=== PATIENT | male | born 2000 ===

== ENCOUNTER → 2022-06-23 14:30 | Outpatient (BNVA) | payer OTHER, SELFPAY | PROVIDERS: PCP Nurse Practitioner Family; Visit Provider Anesthesiology | DX: G90.523 Complex regional pain syndrome I of lower limb, bilateral (principal) | CPT/HCPCS: 99202 ==

== ENCOUNTER 2023-01-13 12:30 | Outpatient (REF) | payer OTHER, SELFPAY ==
--- NOTE | ~2023-01-13 | XR_ITS ---
EXAMINATION: XR KNEE, BILATERAL CLINICAL INFORMATION: Pain. COMPARISON: None TECHNIQUE: 2 views each knee. FINDINGS: RIGHT KNEE: The patellofemoral compartment joint space is maintained normal. There are no loose bodies, bony erosive changes or joint effusion. There is diffuse osteopenia distal femur and proximal tibia. LEFT KNEE: The patellofemoral compartment joint space is maintained normal. No bony erosive changes. No loose bodies. No joint effusion. XR/XR knee LT 2V IMPRESSION: Mild osteopenia of right distal femur and proximal tibia. No acute fracture or dislocation seen. No joint effusion seen. Unremarkable left knee exam.
--- NOTE | ~2023-01-13 | XR_ITS ---
EXAMINATION: XR KNEE, BILATERAL CLINICAL INFORMATION: Pain. COMPARISON: None TECHNIQUE: 2 views each knee. FINDINGS: RIGHT KNEE: The patellofemoral compartment joint space is maintained normal. There are no loose bodies, bony erosive changes or joint effusion. There is diffuse osteopenia distal femur and proximal tibia. LEFT KNEE: The patellofemoral compartment joint space is maintained normal. No bony erosive changes. No loose bodies. No joint effusion. XR/XR knee RT 2V IMPRESSION: Mild osteopenia of right distal femur and proximal tibia. No acute fracture or dislocation seen. No joint effusion seen. Unremarkable left knee exam.
== END 2023-01-13 12:31 | disposition home or self-care (01) ==
LOC: HO.HOSX 12:30
PROVIDERS: Visit Provider Physician Assistant
DX: M24.561 Contracture, right knee (principal); M24.562 Contracture, left knee
CPT/HCPCS: 73560; 99202

== ENCOUNTER 2023-11-04 09:18 | Outpatient (AMB) | payer OTHER, SELFPAY ==
[2023-11-04 09:25] VITALS: BP 120/76; PULSE 96; O2SAT 97
--- NOTE | 2023-11-04 09:25 | A.OFFPC_ITS ---
Vital Signs 11/04/23 09:25 Height 5 ft 6 in BMI Reason not done Patient refused/unable BP 120/76 Blood Pressure Location Lt brachial Position Sitting Pulse 96 Pulse Source Pulse Oximeter Pulse Oximetry (%) 97 Oxygen Delivery Method Room Air Intake Visit Reasons: RLE pain and swelling Secondary Spanish Teacher Required: No Preschool Teacher'S Assistant: Not Required per policy Accompanied by: Self / Same As Patient Allergies No Known Allergies Allergy (Verified 11/04/23 09:26) Tobacco use date assessed: 04/07/23 Dental Screening Dental Screen Date: 11/04/23 Did you have a dental visit in the last 12 months?: No Did you have a dental problem in the last 6 months where you did not have access to dental care?: No Was dental information given to patient?: Patient has dentist HPI RLE pain and swelling HPI Details 23-year-old male 1st time being seen [facility] April 2022 for cardiac arrest history of opioid use went in to [place] fentanyl overdose 8 minutes of ACLS intubated found to have left-sided pneumonia and acute hypoxic respiratory failure and significant shock respiratory metabolic acidosis acute kidney injury secondary to rhabdo myelitis hyperkalemia hyperglycemia and shock liver had oliguria requiring hemodialysis placed on BiPAP had fluid overload sciatic compression secondary to myositis right leg weakness right gluteal compartment syndrome sciatic nerve compression MRI lumbar spine ruled out S Ca and epidural hematoma. Patient has been seeing the nurse practitioner last seen in March 2023 continues to have right leg pain bilateral knee contractures bilateral leg pain patient was seen by orthopedics in [place] [facility] here. concern on leg circulation and concern on DVT [facility] Medical History (Updated 11/04/23 @ 10:20 by Rajan Powers MD) Routine screening for STI (sexually transmitted infection) Screening for diabetes mellitus Screening for hyperlipidemia Screening for hypothyroidism Encounter to establish care HTN, goal to be determined Surgical History No pertinent past surgical history Family History Mother No problems noted. Father No problems noted. Social History Housing: Apartment Patient Tobacco Use Status: Never used Tobacco e-Cigarette/Vaping Use: Former Use Second Hand Smoke Exposure: No Substance Use Type: Marijuana and Opiates service: No Current occupational status: unemployed Cognitive needs: Yes (wheelchair) Hearing needs: No Vision needs: Yes Questionnaire Thrive Questionnaire Date Thrive assessed: 12/01/22 YUVAL-7 AMB Questionnaire YUVAL-7 Date YUVAL - 7 assessed: 03/23/23 Source: Developed by Drs. Jerald Marcum, Jonna White, Miguel Angel Salinas and colleagues, with an educational kyler from [employer]. Physical exam (Primary Care) Vital Signs: Last Vital Signs Pulse 96 11/04/23 09:25 BP 120/76 11/04/23 09:25 Pulse Ox 97 11/04/23 09:25 Oxygen Delivery Method Room Air 11/04/23 09:25 Tobacco/Smoking Status: Tobacco use Status Tobacco use date assessed 04/07/23 11/04/23 09:26 Patient Tobacco Use Status Never used Tobacco 11/04/23 09:26 e-Cigarette/Vaping Use Former Use 11/04/23 09:26 Thrive Assessment: Date of Thrive Assessment Date Thrive assessed 12/01/22 11/04/23 09:26 Const General: alert; No acute distress Eyes Conjunctivae: conjunctivae normal Resp Auscultation: clear to auscultation bilaterally Cardio Rate: regular rate Rhythm: regular rhythm GI Inspection: Yes normal to inspection Extrem Other: no swelling LE and pulses R foot good, canno dorsiflex, cannot straighten R leg, can lift thigh up, L leg normal atrophied R leg Assessment and Plan Assessment & Plan (1) Cardiac arrest due to trauma: Comment: 03/21/22, PEA arrest secondary to fentanyl overdose 03/21/2022 requiring dialysis right lower extremity weaknessworkup for MRI showed extensive myositis and myonecrosis throughout the right hemipelvis right thigh diagnosis of rhabdomyolysis will require nerve conduction test outpatient noted echocardiogram 40-45% follow-up echo required advised cognitive behavior therapy Code(s): I46.8 - Cardiac arrest due to other underlying condition (2) Hypertension: Code(s): I10 - Essential (primary) hypertension (3) Bilateral knee contractures: Code(s): M24.561 - Contracture, right knee; M24.562 - Contracture, left knee (4) Major depression: Code(s): F32.9 - Major depressive disorder, single episode, unspecified Orders: Orders Complete Blood Count Auto Diff Today I46.8 - Cardiac arrest due to other underlying condition Comprehensive Met. Panel Today I46.8 - Cardiac arrest due to other underlying condition Thyroid Stimulating Hormone Today I46.8 - Cardiac arrest due to other underlying condition Vitamin B12 and Folate Today I46.8 - Cardiac arrest due to other underlying condition CA echo transthoracic complete Today I46.8 - Cardiac arrest due to other underlying condition Lipid Panel Today E78.00 - Pure hypercholesterolemia, unspecified, I46.8 - Cardiac arrest due to other underlying condition Free T4 (Free Thyroxine) Today I46.8 - Cardiac arrest due to other underlying condition Medications: Changed From duloxetine 30 mg PO QAM 30 caps 2RF F32.9 - Major depressive disorder, single episode, unspecified To duloxetine 60 mg PO QAM 30 caps 2RF F32.9 - Major depressive disorder, single episode, unspecified Discontinued carvedilol Discontinued Reason: Patient Refused 6.25 mg PO BID 30 tabs 2RF I10 - Essential (primary) hypertension, I50.20 - Unspecified systolic (congestive) heart failure clonidine HCl Discontinued Reason: Doctor's Order 0.2 mg (2 x 0.1 mg) PO BID 60 tabs 2RF F41.9 - Anxiety disorder, unspecified melatonin Discontinued Reason: Patient Completed Course 5 mg PO BEDTIME 30 tabs 0RF tizanidine Discontinued Reason: Patient Completed Course 2 mg PO Q8H PRN 30 tabs 0RF muscle spasticity G90.523 - Complex regional pain syndrome I of lower limb, bilateral, M25.561 - Pain in right knee, M25.562 - Pain in left knee, M79.604 - Pain in right leg, M79.605 - Pain in left leg gabapentin Discontinued Reason: Patient Completed Course 200 mg (2 x 100 mg) PO TID 84 caps 0RF M79.604 - Pain in right leg, M79.605 - Pain in left leg meloxicam Discontinued Reason: Patient Completed Course 7.5 mg PO DAILY 14 tabs 0RF M79.604 - Pain in right leg, M79.605 - Pain in left leg Coding Level of Care Code Est Pt Level 4 (18030) Diagnoses Cardiac arrest due to trauma I46.8 Hypertension I10 Bilateral knee contractures M24.561; M24.562 Major depression F32.9
== END 2023-11-04 10:45 | disposition home or self-care (01) ==
PROVIDERS: PCP Nurse Practitioner Family; Visit Provider Internal Medicine
DX: I46.8 Cardiac arrest due to other underlying condition (principal); I10 Essential (primary) hypertension; M24.561 Contracture, right knee; M24.562 Contracture, left knee; F32.9 Major depressive disorder, single episode, unspecified
CPT/HCPCS: 99214

== ENCOUNTER 2024-09-06 10:25 | Outpatient (AMB) | payer OTHER, SELFPAY ==
[2024-09-06 10:29] VITALS: BP 100/66; PULSE 101; O2SAT 96
--- NOTE | 2024-09-06 10:29 | MHC.PC.OV ---
Vital Signs 09/06/24 10:29 Height 5 ft 6 in BMI Reason not done Patient refused/unable BP 100/66 Blood Pressure Location Rt brachial Position Sitting Pulse 101 H Pulse Source Pulse Oximeter Pulse Oximetry (%) 96 Oxygen Delivery Method Room Air Intake Visit Reasons: annual exam Home Day Care Provider Required: No Accompanied by: Self / Same As Patient Allergies No Known Allergies Allergy (Verified 09/06/24 10:51) Medication List - Last Reconciled 09/06/24 by Rayne Huffman PA-C acetaminophen (Tylenol Extra Strength) 1,000 mg (2 x 500 mg) PO Q6H PRN crutches As directed duloxetine 60 mg PO QAM Tobacco use date assessed: 09/06/24 Dental Screening Dental Screen Date: 09/06/24 Did you have a dental visit in the last 12 months?: Yes Did you have a dental problem in the last 6 months where you did not have access to dental care?: No Was dental information given to patient?: Patient has dentist HPI annual exam HPI Details 24-year-old male with past medical history of cardiac arrest believed to be secondary to intentional overdose. Was previously being seen by [place] [facility] for bilateral leg contracture. In review of the notes, patient was scheduled to be seen by Cardiology earlier this year and missed the appointment. Patient was seen by [place] [facility] 04/20/2023 advise surgical plan for manipulation under anesthesia for right knee contracture. Underwent manipulation under anesthesia twice the second time being this year, with very mild improvement and has not gone back to see them. Patient has not seen orthopedics since the 2nd manipulation earlier this year. He continues to have right leg pain and deconditioning and has new onset right foot pain. Due to nerve damage patient is unsure if he had injury to the foot but does not recall any instances where he may have injured the foot. Previously seen by Cardiology and [place] and has not followed up. His sensation in bilateral feet and legs has been improving however he does still continue to have pain in the right leg. He has used gabapentin along with some muscle relaxers for the pain with little improvement. He is wheelchair dependent and requires his FISHERY BIOLOGIST for many of his ADLs. [facility] Medical History Routine screening for STI (sexually transmitted infection) Screening for diabetes mellitus Screening for hyperlipidemia Screening for hypothyroidism Encounter to establish care HTN, goal to be determined Surgical History No pertinent past surgical history Family History Mother No problems noted. Father No problems noted. Social History Housing: Apartment Patient Tobacco Use Status: Never used Tobacco e-Cigarette/Vaping Use: Former Use Second Hand Smoke Exposure: No Substance Use Type: Marijuana and Opiates service: No Current occupational status: unemployed Cognitive needs: Yes (wheelchair) Hearing needs: No Vision needs: Yes Questionnaire PHQ-9 Over the last 2 weeks, how often have you been bothered by any of the following problems? 1. Little interest or pleasure in doing things: nearly every day 2. Feeling down, depressed, or hopeless: more than half the days 3. Trouble falling or staying asleep, or sleeping too much: nearly every day 4. Feeling tired or having little energy: nearly every day 5. Poor appetite or overeating: nearly every day 6. Feeling bad about yourself - or that you are a failure or have let yourself or your family down: more than half the days 7. Trouble concentrating on things, such as reading the newspaper or watching television: several days 8. Moving or speaking so slowly that other people could have noticed. Or the opposite - being so fidgety or restless that you have been moving around a lot more than usual: more than half the days 9. Thoughts that you would be better off or of hurting yourself in some way: not at all Total score: 19 Depression Screening Interpretation: Positive Depression Screening Follow-up: Existing condition and Declines treatment Depression Screening Done: Yes [id number] - PHQ-9 Billing: Yes Source: Developed by Drs. Jerald Marcum, Jonna White, Miguel Angel Salinas and colleagues, with an educational kyler from [employer]. Thrive Questionnaire Date Thrive assessed: 09/06/24 I am a: Patient What is your living situation today?: I have a place to live, but I am worried about losing it in the future Within the past 12 months, did the food you bought not last and you didn't have the money to get more?: Sometimes True Within the past 12 months, did you worry whether your food would run out before you got money to buy more?: Sometimes True Do you have trouble paying for medicines?: I choose not to answer this question Do you have trouble getting transportation to medical appointments?: No Do you have trouble paying your heating and electricity bill?: I choose not to answer this question Do you have trouble taking care of your child, family member or friend?: I choose not to answer this question Do you have trouble with day-to-day activities such as bathing, preparing meals, shopping, managing finances, etc.?: Yes Are you currently unemployed and looking for a job?: I choose not to answer this question Are you interested in more education?: Yes Please select the resources that you would like help with: Housing/Alf, Food, Transportation, Utilities, Care for elder or disabled, Daily support, Job search/training and Education Currently or been in a relationship where the following occur: No concerns reported THRIVE Score: 3 AUDIT C Alcohol Use Questionnaire (AUDIT-C) 1. How often do you have a drink containing alcohol?: Never Total Score: 0 YUVAL-7 AMB Questionnaire YUVAL-7 Date YUVAL - 7 assessed: 03/23/23 Feeling nervous, anxious, or on edge: 1 = Several days Not being able to stop or control worryin = Several days Worrying too much about different things: 3 = Nearly every day Trouble relaxin = Nearly every day Being so restless that it is hard to sit still: 3 = Nearly every day Becoming easily annoyed or irritable: 1 = Several days Feeling afraid as if something awful might happen: 3 = Nearly every day Total YUVAL-7 score (0-4 normal; 5-9 mild; 10-14 moderate; 15-21 severe): 15 Source: Developed by Drs. Jerald Marcum, Jonna White, Miguel Angel Salinas and colleagues, with an educational kyler from [employer]. Review of Systems Const Denies body aches, Denies fatigue, Denies fever(s), Denies frequent falls, Reports headache(s) and Reports weakness Eyes Reports no additional complaints and Denies change in vision ENT Denies dysphagia, Denies dizziness, Denies facial pain, Reports headache(s), Denies nasal congestion and Denies odynophagia Card Denies chest pain, Denies syncope, Denies irregular heart rhythm, Denies leg edema, Denies lightheadedness and Denies dyspnea Resp Denies cough and Denies dyspnea GI Denies abdominal pain, Denies constipation, Denies dysphagia, Denies dyspepsia, Denies diarrhea, Denies nausea, Denies odynophagia and Denies vomiting Denies dysuria, Denies urinary frequency, Denies urinary hesitancy and Denies urinary urgency Musc Details: Right foot pain Reports as per HPI, Reports abnormal gait, Denies myalgias, Reports atrophy and Reports limited range of motion Skin/Breast Reports system reviewed and no additional complaints, except as documented Neuro Reports abnormal gait, Denies dizziness, Denies syncope, Denies frequent falls, Reports headache(s) and Reports weakness Psych Reports no additional complaints Endo Denies fatigue Physical exam (Primary Care) Vital Signs: Last Vital Signs Pulse 101 H 09/06/24 10:29 BP 100/66 09/06/24 10:29 Pulse Ox 96 09/06/24 10:29 Oxygen Delivery Method Room Air 09/06/24 10:29 Tobacco/Smoking Status: Tobacco use Status Tobacco use date assessed 09/06/24 09/06/24 10:32 Patient Tobacco Use Status Never used Tobacco 09/06/24 10:32 e-Cigarette/Vaping Use Former Use 09/06/24 10:32 PHQ-9: PHQ-9 Score PHQ-9: Total score 19 09/06/24 10:55 Depression Screening Interpretation: Positive Depression Screening Follow-up: Existing condition and Declines treatment Thrive Assessment: Date of Thrive Assessment Date Thrive assessed 09/06/24 09/06/24 10:32 Currently or been in a relationship where the following occur: No concerns reported Const General: cooperative, healthy appearing, comfortable and no acute distress Orientation/consciousness: patient oriented x3 HENMT Head: Yes normocephalic Ears: hearing grossly normal bilaterally, external ears normal, TM's normal bilaterally and EAC's normal General nose exam: Normal external nose present Face and sinus: Yes normal facial exam and Yes sinuses nontender Mouth: Normal oral and palatal mucosa present and tongue normal Throat: Yes posterior oropharynx normal Eyes General: appearance normal, both eyes and all related structures Conjunctivae: conjunctivae normal Pupils: Equal, round and reactive pupils present EOM: EOMs intact bilaterally and No Nystagmus present Neck Neck: Yes normal visual inspection, Yes full ROM and Yes no lymphadenopathy Chest Chest palpation & inspection: normal inspection of the chest Resp Effort & Inspection: normal respiratory effort Auscultation: clear to auscultation bilaterally, no crackles, no rales, no rhonchi, no wheezes and breath sounds present Cardio Rate: regular rate Rhythm: regular rhythm Peripheral pulses: radial pulses present and dorsalis pedis present GI Inspection: Yes normal to inspection and No Abdominal wall edema Palpation (GI): Soft to palpation, not firm and nontender Auscultation: normal bowel sounds Rectal Exam - Male: Yes deferred General: Yes no CVA tenderness Back/Spine/Pelvis Back: no CVA tenderness Skin General skin exam: no rashes or lesions noted Neuro General: patient oriented x3 Cranial nerves: Yes Equal, round and reactive pupils present, Yes Midline tongue present, Yes Ability to bilaterally elevate shoulders present and No Nystagmus present Gait exam (Neuro): Assisted gait required Gait assisted method: wheelchair bound Extrem Other: Pulses intact in bilateral lower extremities. Tenderness to palpation and mild swelling of medial aspect of the foot around the great toe without erythema or overlying skin changes. Right lower extremity contracted with decreased muscle mass of calf and thigh General: Yes normal to inspection, Yes full ROM, No no pedal edema and No edema Psych Speech and movement: Normal speech and movement present Affect: normal affect Insight: Good insight present (Psych) Judgement: Good judgement present (Psych) Coding Level of Care Code Est Pt Level 3 (82927) Est Pt Prev Care 18-39y(52222) Diagnoses Major depression F32.9 Bilateral knee contractures M24.561; M24.562 Complex regional pain syndrome i of lower limb, bilateral G90.523 Cardiac arrest due to trauma I46.8 Hypertension I10 Right foot pain M79.671 Assessment & Plan Assessment & Plan (1) Major depression: Code(s): F32.9 - Major depressive disorder, single episode, unspecified Category: Medical Plan: Patient has a history of being on several different medications for this concern. He is declines need for counselor at this time. Is willing to trial mirtazapine 7.5 mg for depression, sleep as well as appetite stimulant. (2) Bilateral knee contractures: Code(s): M24.561 - Contracture, right knee; M24.562 - Contracture, left knee Category: Medical Plan: Advised patient to continue to follow up with Orthopedics. Was previously working with physical therapy but was dismissed. (3) Complex regional pain syndrome i of lower limb, bilateral: Code(s): G90.523 - Complex regional pain syndrome I of lower limb, bilateral Category: Medical Plan: Patient has been on several medications to treat the nerve and muscle pain of the right lower extremity. We will trial muscle relaxer to help with the pain and referral placed for pain management clinic for further evaluation. (4) Cardiac arrest due to trauma: Comment: 03/21/22, PEA arrest secondary to fentanyl overdose 03/21/2022 requiring dialysis right lower extremity weaknessworkup for MRI showed extensive myositis and myonecrosis throughout the right hemipelvis right thigh diagnosis of rhabdomyolysis will require nerve conduction test outpatient noted echocardiogram 40-45% follow-up echo required advised cognitive behavior therapy Code(s): I46.8 - Cardiac arrest due to other underlying condition Category: Medical Plan: Advised patient to follow up with site[facility] developer as they have not been seen in over a year. Ordered for updated blood work. (5) Hypertension: Code(s): I10 - Essential (primary) hypertension Category: Medical Plan: Blood pressure normal on exam today.Avoid salt intake and encourage healthy diet and regular exercise as tolerated. (6) Right foot pain: Code(s): M79.671 - Pain in right foot Category: Medical Plan: Patient has new onset right foot pain and swelling for the last month unsure if he did anything to injure the foot as he has nerve damage in this extremity. Ordered for right foot x-ray. Patient also requesting ankle brace as his foot will pronate often causing pain. Plan This note was constructed using voice recognition software. While every effort has been made to ensure accuracy and associate store leader, still areas may have been included sometimes these areas may affect the content or meeting of the given symptoms. Total time spent caring for the patient today was 30 minutes. This includes time spent before the visit reviewing the chart, time spent during the visit, and time spent after the visit and documentation. Orders: Orders XR foot RT 2V Today M79.671 - Pain in right foot Complete Blood Count Auto Diff Today I46.8 - Cardiac arrest due to other underlying condition Vitamin B12 and Folate Today I46.8 - Cardiac arrest due to other underlying condition Thyroid Stimulating Hormone Today I46.8 - Cardiac arrest due to other underlying condition Comprehensive Met. Panel Today I46.8 - Cardiac arrest due to other underlying condition Free T4 (Free Thyroxine) Today I46.8 - Cardiac arrest due to other underlying condition Lipid Panel Today E78.00 - Pure hypercholesterolemia, unspecified, I46.8 - Cardiac arrest due to other underlying condition Referrals Pain Management Referral G90.523 - Complex regional pain syndrome I of lower limb, bilateral Medications: New naproxen 500 mg PO BID PRN 30 tabs 0RF pain naproxen 500 mg PO BID PRN 30 tabs 0RF pain mirtazapine 7.5 mg PO BEDTIME 30 tabs 2RF methocarbamol 500 mg PO BID PRN 14 tabs 0RF pain mirtazapine 7.5 mg PO BEDTIME 30 tabs 2RF methocarbamol 500 mg PO BID PRN 14 tabs 0RF pain leg brace (Ankle Brace) As directed 1 ea 0RF M79.671 - Pain in right foot, R29.898 - Other symptoms and signs involving the musculoskeletal system Discontinued duloxetine Discontinued Reason: Patient no longer taking 60 mg PO QAM 30 caps 2RF F32.9 - Major depressive disorder, single episode, unspecified
== END 2024-09-06 11:24 | disposition home or self-care (01) ==
PROVIDERS: PCP Internal Medicine
DX: Z00.00 Encounter for general adult medical examination without abnormal findings (principal); I46.8 Cardiac arrest due to other underlying condition; M24.561 Contracture, right knee; M24.562 Contracture, left knee; F32.9 Major depressive disorder, single episode, unspecified; G90.523 Complex regional pain syndrome I of lower limb, bilateral; I10 Essential (primary) hypertension; M79.671 Pain in right foot

== ENCOUNTER → 2024-09-06 10:25 | Outpatient (BNVA) | payer OTHER, SELFPAY | PROVIDERS: PCP Internal Medicine | DX: F32.9 Major depressive disorder, single episode, unspecified (principal); M24.561 Contracture, right knee; M24.562 Contracture, left knee; G90.523 Complex regional pain syndrome I of lower limb, bilateral; I46.8 Cardiac arrest due to other underlying condition; I10 Essential (primary) hypertension; M79.671 Pain in right foot | CPT/HCPCS: 96127; 99212; 99395 ==